=== PATIENT | female | born 1975 | race Caucasian/White ===

== ENCOUNTER 2023-09-19 08:45 | Outpatient (RCR) | payer OTHER, BC, SELFPAY ==
--- NOTE | 2023-08-07 16:24 | OPREHPOC ---
Outpatient Therapy Plan of Care This is a Multidisciplinary Plan of Care that may contain components documented by all disciplines (PT, OT, and ST.) PT Problem 1 PT Problem #1 Knowledge Deficit PT Goal 1 Goal 1* indep with HEP PT Problem 2 PT Problem #2 Pain PT Goal 1 Goal 1* pt report pain of L knee at 3/10 at worst 2* pt report with sleeping, awaken from pain 3x/ night PT Problem 3 PT Problem #3 Impaired Flexibility PT Goal 1 Goal increase flexibility of L LE: 1* anterior hip/quad length with supine position and leg over mat, knee flexion 95' with hip extension 0' 2* sitting knee flexion 105' 3* sitting knee extension 0' PT Problem 4 PT Problem #4 Impaired Strength PT Goal 1 Goal increase strength of hip/knee L, to improve stability and support to LE: 1* single leg standing L x 20 seconds 2* bridge x 20 reps 3* prone hip extension 15 reps
--- NOTE | 2023-08-07 16:24 | PTOPEVAL1 ---
Assessment and note entered by Wanda Blackmon, PT Evaluation Information Assessment Status Evaluation Diagnosis L knee pain and foot pain Onset January 2023 Subjective Information chronic issues with L foot pain/plantar fasciitis- saw foot dr, gave her some exercises, did not help; have orthotics that help some; chronic issues with L knee pain, about 6 months ago more issues with going up/down stairs; started having more pain and swelling in lower leg ; have popping noise from knee all the time; more issues with getting comfortable with sleeping ; knee gave out on stairs and fell few days ago; Xrays L knee: mild medial joint space narrowing; mild degenerative changes, mild ostophytes, degenerative changes patella femoral joint. ACTIVITY: work 3 days/wk at desk job; at home, have full flight of stairs. Reported Pain Level Pain Score Self Report Additional Pain Score Comments L knee pain range of 0-5/10; medial knee joint- throbs, dull- ache; sometimes runs down back of leg/calf increase pain: when awaken in AM, walking varies; stairs, end of day decrease pain: ice, ibuprofen with sleeping- hard to get comfortable, awaken from knee pain 5-6x/night; educated on use of pillow between knees with sleeping; have not tried a knee brace, discussed PRN velcro brace use; L foot pain range 0-2/10; arch of foot-aching decrease pain: orthotics in shoes; increase pain: walking; barefoot or non supportive shoes instruct on PRN use of ice over arch of foot-- frozen water bottle Assessment PT Clinical Summary Alejandra has the diagnosis' of L knee pain and L foot pain. She reports decrease walking and sleeping tolerance due to knee pain. xray report states degenerative changes of PF joint and medial joint space narrowing. She is active and trying to lose weight--discussed aquatic exercises at the gym. The knee pain bothers her more than the plantar fasciitis pain. T
--- NOTE | 2023-08-28 09:58 | OPREHPOC ---
Outpatient Therapy Plan of Care This is a Multidisciplinary Plan of Care that may contain components documented by all disciplines (PT, OT, and ST.) PT Problem 1 PT Problem #1 Knowledge Deficit PT Goal 1 Goal 1* indep with HEP Progress Met Comment 08-27-23 progress met goal continue with goal to progress education/HEP PT Problem 2 PT Problem #2 Pain PT Goal 1 Goal 1* pt report pain of L knee at 3/10 at worst 2* pt report with sleeping, awaken from pain 3x/ night Progress Partially Met Comment 08-27-23 progress met goal 2; NEW GOALS: 1* pain rating at worst L knee of 2/10 2* no awakening from sleep due to pain PT Problem 3 PT Problem #3 Impaired Flexibility PT Goal 1 Goal increase flexibility of L LE: 1* anterior hip/quad length with supine position and leg over mat, knee flexion 95' with hip extension 0' 2* sitting knee flexion 105' 3* sitting knee extension 0' Progress Partially Met Comment 08-27-23 progress met goals 2,3; NEW GOALS: 1* active L knee flexion in sitting 120' 2* anterior hip/quad length in prone, knee flexion 110' PT Problem 4 PT Problem #4 Impaired Strength PT Goal 1 Goal increase strength of hip/knee L, to improve stability and support to LE: 1* single leg standing L x 20 seconds 2* bridge x 20 reps 3* prone hip extension 15 reps Progress Partially Met Comment 08-27-23 progress met goals 2,3 continue towards goal 1
--- NOTE | 2023-08-28 09:58 | PTOPPROG ---
Assessment and note entered by Wanda Blackmon, PT Reevaluation Information Assessment Status Progress Diagnosis L knee pain and foot pain Onset January 2023 Subjective Information pain is not as consistent as it was--comes and goes now; with work, sit about 1 hour and then get up--before would limp, now is not limping; has been doing the exercises; had dry needling once and think it helped; want to continue therapy to get knee better; PAIN: range in past week 0-4/10: achy most of the time, sharp knee pain when going down the stairs; knee feels tight and not like the other knee with sleeping, awaken 1-2x/night due to pain; is able to lie on her back with leg extended and it is comfortable; not popping and cracking as much; Assessment PT Clinical Summary Alejandra has received 7 PT sessions. Compared to the initial evaluation: pain rating at worst for L knee from 5 to 4/10; sleeping improved from awakening 5-6x to 1-2x/night due to pain; knee ROM improved to 0-110'; strength improved with single leg standing 8 seconds, hip and knee; continues to have tightness over anterior hip/quad muscles and spasms over gastroc- soleus; education for HEP; Taping and dry needling are decreasing her pain and gastroc spasms. The goals were partially met. Continue PT treatment. Plan of Care Interventions Electrical Stimulation,Hot Pack/Cold Pack,Manual Therapy,Neuro Re-education,Patient Education,Therapeutic Activities,Therapeutic Exercise,Ultrasound,Other Other Interventions taping, [facility] PT Services Indicated Yes Treatment Frequency and 2x/wk for 3 weeks Duration These treatments will address the objective and functional deficits as defined above. The patient will be advanced safely and appropriately in order for the patient to progress towards his/her prior level of function. Additional exercises will be introduced and as well as a comprehensive home exercise program upon discharge, if needed, ?to ensure carryover of functional gains achieved in the clinic. This treatment plan has been reviewed and agreement upon by the patient.
--- NOTE | 2023-09-09 10:16 | PCPTNOTE ---
Patient cancelled today's appointment secondary to illness.
--- NOTE | 2023-09-19 09:37 | PTOPDC ---
Assessment and note entered by Wanda Blackmon, PT Evaluation Information Assessment Status Discharge Diagnosis L knee pain and foot pain Onset January 2023 Subjective Information knee is not as stiff and tight as it was; when get up from sitting, can start walking right away, not hobble to get going; is doing all the exercises at home; no problems with sleeping, no pain and can sleep on her back again; Reported Pain Level Pain Score Self Report Additional Pain Score Comments knee:0-2/10 over the past week; after up and walking 2 & 1/2 hours, medial knee was sore; no longer pain at night; L foot/ankle 0-4/10- more pain with standing balance activities and full weight on L LE; Assessment PT Clinical Summary Alejandra has received 12 PT sessions. Compared to the last reeval: knee pain at worst from 4 to 2/10, tight & sore, is no longer sharp; increase strength of L knee with single leg standing; indep with HEP; active L knee flexion is 110' with slight tightness at end ROM. Indep with HEP and self management of pain. The goals were achieved except knee flexion to 120' Discharge PT services. She is to continue with her HEP. Plan of Care PT Services Indicated No
== END 2023-09-19 12:52 | disposition home or self-care (01) ==
LOC: ANHPT 08:45
PROVIDERS: PCP Family Medicine; Visit Provider Orthopaedic Surgery
DX: M79.672 Pain in left foot (principal); M70.52 Other bursitis of knee, left knee; M22.42 Chondromalacia patellae, left knee; M72.2 Plantar fascial fibromatosis
CPT/HCPCS: 97110; 97112; 97140; 97162; 97530